=== PATIENT | female | born 1955 | race Caucasian/White ===

== ENCOUNTER → 2017-03-29 | Outpatient (CLI) | payer OTHER | LOC: PLD 10:17 → LAB SHORT 10:17 | DX: D48.5 Neoplasm of uncertain behavior of skin (principal) | CPT/HCPCS: 88305 ==

== ENCOUNTER 2018-04-27 04:11 | Observation (INO) | payer OTHER ==
[~2018-04-27] VITALS: Ht 165.1 cm; Wt 59.0 kg
[2018-04-27 06:03] LABS: Hematocrit 42.6 % (33.0-51.0); Hemoglobin 14.3 g/dL (11.5-16.0); Mean Corpuscular HGB 29.5 pg (26.0-34.0); Mean Corpuscular HGB Conc 33.6 g/dL (31.5-36.5); Mean Corpuscular Volume 88 fL (80-100); Mean Platelet Volume 10.6 fL (9.1-12.4); Platelet Count 204 K/mm3 (150-400); RDW Standard Deviation 41.9 fL (35.1-46.3); Red Blood Cell Count 4.84 M/mm3 (3.80-5.20); White Blood Cell Count 28.55 K/mm3 (4.00-11.30)
[2018-04-27] MEDS ORDERED: VALACYCLOVIR1000 MG PO (06:04)
[2018-04-27 06:32] LABS: Alanine Aminotransfer (ALT/SGP 33 U/L (12-78); Albumin, Blood 3.9 g/dL (3.4-5.0); Albumin/Globulin Ratio 1.1 (0.8-1.8); Alk Phos 112 U/L (50-136); Anion Gap 10 mmol/L (6-16); Aspartate Aminotrans (AST/SGOT 18 U/L (12-37); Bilirubin, Total 0.9 mg/dL (0.1-1.0); Blood Urea Nitrogen 13 mg/dL (8-24); Bun/Creatinine Ratio 16.8 (12.0-20.0); CO2, Blood 25 mmol/L (21-32); Calcium, Blood 9.1 mg/dL (8.5-10.1); Chloride, Blood 105 mmol/L (98-108); Creatinine, Blood 0.77 mg/dL (0.40-1.00); Globulin, Blood 3.7 g/dL (2.2-4.0); Glomerular Filtration Rate >60 (60-); Glucose, Blood 133 mg/dL (70-99); Potassium, Blood 3.4 mmol/L (3.5-5.5); Sodium, Blood 140 mmol/L (136-145); Total Protein, Blood 7.6 g/dL (6.4-8.2)
[2018-04-27 07:18] LABS: BASOPHILS PERCENT MAN 0 % (0-2); EOSINOPHILS PERCENT MAN 0 % (0-6); LYMPHOCYTES ABSOLUTE MAN 10.56 K/mm3 (0.84-5.20); LYMPHOCYTES PERCENT MAN 37 % (21-46); MONOCYTES ABSOLUTE MAN 1.71 K/mm3 (0.16-1.47); MONOCYTES PERCENT MAN 6 % (4-13); NEUTROPHILS ABSOLUTE MAN 16.27 K/mm3 (1.96-9.15); SEG NEUTROPHILS PERCENT MAN 57 % (41-73); TOTAL CELLS COUNTED 100
[2018-04-27 08:29] LABS: Source, Urine Clean Catch
[2018-04-27 08:33] LABS: Bilirubin, Urine Neg (Neg); Blood, Urine 1+ (Neg); Glucose Qualitative, Urine Neg (Neg); Ketones, Urine 2+ (Neg); Leukocyte Esterase, Urine Neg (Neg); Nitrite, Urine Neg (Neg); Protein, Urine 1+ (Neg); Urobilinogen, Urine NORM (Normal)
[2018-04-27 08:55] LABS: Appearance, Urine Clear (Clear); Color, Urine Yellow (P-Yellow)
[2018-04-27 08:59] LABS: White Blood Cells, Urine Rare /hpf (0-5)
[2018-04-27 09:00] LABS: Red Blood Cells, Urine 0-2 /hpf (0-2)
[2018-04-27 09:01] LABS: Bacteria Few /hpf; Squamous Epithelial Cells Rare /hpf (Few)
[2018-04-27 09:02] LABS: Amorphous Light (0-Heavy)
--- NOTE | 2018-04-27 12:33 | NUR ---
FROM SURGICAL FLOOR TO SDS. VSS PATIENT RATES PAIN AT 8/10. RX GIVEN
--- NOTE | 2018-04-27 14:45 | NUR ---
GIVEN 2 MG IV PRIOR TO TAKING TO SURGERY ROOM. MEDICATION HAS NOT CROSSED OVER ONTO MAY.
--- NOTE | 2018-04-27 16:20 | NUR ---
"PEANUT VENDOR | HANDOFF TO MIGUEL GIVENS RN FOR BREAK AT 1609"
--- NOTE | 2018-04-27 16:27 | NUR ---
1605- assumed care of pt.
--- NOTE | 2018-04-27 18:54 | NUR ---
SHIFT SUMMARY PT POD 0 LAP APPY. STERI STRIPS'S X'S 3 C/D/I/. PT HAS DENIED PAIN POST-OP. DENIES N/V, TOLERATING CLEAR LIQUIDS, WILL ADVANCE DIET TOLERATED. PLAN IS TO DC HOME TOMORROW IF PT REMAINS STABLE.
[2018-04-28 05:35] LABS: BASOPHILS ABSOLUTE AUTO 0.03 K/mm3 (0.00-0.23); BASOPHILS PERCENT AUTO 0 % (0-2); EOSINOPHILS PERCENT AUTO 0 % (0-6); Hematocrit 36.8 % (33.0-51.0); Hemoglobin 11.9 g/dL (11.5-16.0); Mean Corpuscular HGB 29.1 pg (26.0-34.0); Mean Corpuscular HGB Conc 32.3 g/dL (31.5-36.5); Mean Corpuscular Volume 90 fL (80-100); Mean Platelet Volume 11.1 fL (9.1-12.4); Platelet Count 175 K/mm3 (150-400); RDW Coefficient Variation 13.2 % (11.7-14.2); RDW Standard Deviation 43.1 fL (35.1-46.3); Red Blood Cell Count 4.09 M/mm3 (3.80-5.20); White Blood Cell Count 30.32 K/mm3 (4.00-11.30)
[2018-04-28 05:37] LABS: IMMATURE GRAN ABSOLUTE AUTO 0.17 K/mm3 (0.00-0.10); IMMATURE GRAN PERCENT AUTO 1 % (0-1); LYMPHOCYTES PERCENT AUTO 29 % (21-46); MONOCYTES ABSOLUTE AUTO 1.62 K/mm3 (0.16-1.47); MONOCYTES PERCENT AUTO 5 % (4-13); NEUTROPHILS PERCENT AUTO 65 % (41-73)
[2018-04-28] MEDS ORDERED: Augmentin 875-1 EACH PO (11:51)
[2018-04-28] MEDS ORDERED: HYDR1TAB94 PO (11:52)
--- NOTE | 2018-04-28 12:19 | NUR ---
DISCHARGED DC'D IV, CATHETER INTACT. REVIEWED DC PAPERORK; PT VERBALIZED UNDERSTANDING OF DC INSTRUCTIONS. PT LEFT UNIT IN WC ACCOMPANIED BY SPOUSE W/POSSESSIONS AND DC PAPERWORK IN HAND.
== END 2018-04-28 12:16 | disposition home or self-care (01) ==
LOC: ER 04:11 → ERHOLD 04:12 → SURS 04:12
PROVIDERS: Emergency Medicine; ADMIT Surgery
PROC: 0DTJ4ZZ Resection of Appendix, Percutaneous Endoscopic Approach (ICD-10-PCS; principal; 2018-04-27 13:00)
DX: K35.33 Acute appendicitis with perforation, localized peritonitis, and gangrene, with abscess (principal); E78.00 Pure hypercholesterolemia, unspecified; M85.80 Other specified disorders of bone density and structure, unspecified site; E55.9 Vitamin D deficiency, unspecified
CPT/HCPCS: 36415; 74177; 80053; 81001; 83690; 85025; 96361-59; 96365-59; 96375-59; 96376-59; 99285-25; J0295; J1100; J1885; J2250; J2370; J2405; J2710; J3010; J7030; J7120; Q9967

== ENCOUNTER → 2019-03-28 | Outpatient (CLI) | payer OTHER ==
[~2019-03-28] MED LIST: Augmentin 875-1 EACH PO; HYDR1TAB94 PO; VALACYCLOVIR1000 MG PO
== END | disposition home or self-care (01) ==
LOC: LAB SHORT 11:55 → PLD 11:55
DX: D48.5 Neoplasm of uncertain behavior of skin (principal)
CPT/HCPCS: 88305

== ENCOUNTER → 2019-05-02 | Outpatient (CLI) | payer OTHER ==
[2019-05-06 15:09] LABS: HPV 16 Negative (Negative); HPV 18 Negative (Negative); HPV OTHER HR TYPES Negative (Negative)
== END | disposition home or self-care (01) ==
LOC: LAB SHORT 15:06 → LAB 15:06
PROVIDERS: Family Medicine
DX: Z12.4 Encounter for screening for malignant neoplasm of cervix (principal)
CPT/HCPCS: 87624; G0123